=== PATIENT | male | born 1985 | race Caucasian/White ===

== ENCOUNTER 2023-02-03 12:00 | Emergency (ER) | payer OTHER ==
--- OUTSIDE RECORDS SUMMARY | 2023-02-03 12:04 | XMS REPORT | Continuity of Care Document ---
:1985 Author Organization [facility] t Address [address] [place] [address] [place] [address] Care Team Providers Name Role Phone Robin Sunshine DO Primary Care Physician [phone] FOG_A_Provider Attending Clinician Unavailable AJ ZHOU Attending Clinician Unavailable Shoaib Ochoa MD Attending Clinician Robin Sunshine DO Attending Clinician [phone] [id number] Attending Clinician Unavailable FOG_A_Provider Admitting Clinician Unavailable Payers Payer Name Policy Type Policy Number Effective Date Expiration Date Yessi ledezma [employer] [id number] [facility] (O) [id number] 2022 00:00:00 Problems Condition Condition Condition Status Onset Resolution Last Treating Co mments Source Name Details Category Date Date Treatment Clinician Date Sprain of Sprain of Problem Active Aza stalin left ankle Left Ankle 2-08 Or thope 00:00: dic 00 Sports Medicin e Sprain of Sprain of Problem Active Aza stalin left foot Left Foot 2-08 Orth ope 00:00: dic 00 Sports Medicin e Sprain of Sprain of Problem Active Aza stalin calcaneofi Calcaneofi 2-08 Or thope bular bular 00:00: dic ligament Ligament 00 Sports Medicin e Sprain of Sprain of Problem Active Aza stalin ligament Ligament 2-08 Orthop e of of 00:00: dic tarsometat Tarsometat 00 Sp orts arsal arsal Medicin joint Joint e Pain of Pain of Problem Active Helen left ankle Left Ankle 2-08 Or thope joint Joint 00:00: dic 00 Sports Medicin e Celiac Celiac Disease Active 2021-12 Methodi disease disease 12-01 st 00:00: Hospita 00 l Essential Essential Disease Active 2021-12 Met hodi hypertensi hypertensi 12-01 st on on 00:00: Hospita 00 l Anxiety Anxiety Disease Active 2021-12 Methodi 12-01 [facility] 00:00: Hospita 00 l Mild Mild Disease Active 2021-12 Methodi intermitte intermitte 12-01 st nt asthma nt asthma 00:00: Hosp martin without without 00 l complicati complicati on on Seasonal Seasonal Disease Active 2021-12 Metho di allergic allergic 12-01 rhinitis rhinitis 00:00: Hospit a 00 l Allergies, Adverse Reactions, Alerts This patient has no known allergies or adverse reactions. Social History Social Habit Start Date Stop Date Quantity Comments Source Tobacco use and 2022-10-01 2022-10-01 Smokeless tobacco [facility] exposure 00:00:00 00:00:00 non-user Hospital Alcohol intake 2022-10-01 2022-10-01 Ex-drinker [facility] 00:00:00 00:00:00 (finding) Hospital Sex Assigned At [birth year] [facility] 00:00:00 00:00:00 Hospital Smoking Status Start Date Stop Date Source Never Smoker [facility] Medications Ordered Filled Start Stop Current Ordering Indication Dosage Frequency Signature Comments Components Source Medication Medication Date Date Medication? Clinician (SIG) Name Name levalbutero 2021-12- No 1{puff} Q4H Inhale 1-2 Methodi l (XOPENEX 12-[address] HFA) 45 14:22: 00:00 every 4 Hospit a mcg/actuati 50 :00 (four) l on inhaler hours as needed for wheezing. loratadine 2021-12 Yes 10mg QD Take 1 Metho di (Claritin) 12-01 tablet (10 st 10 mg 13:57: mg total) Hospita tablet 21 by mouth l daily. fluticasone 2021-12 Yes 100ug QD 2 sprays M ethodi propionate 12-01 ([address] (FLONASE) 13:57: total) by Hos sergio 50 21 Each Nare l mcg/actuati route on nasal daily. spray levalbutero 2021-12 Yes [id number] 1{puff} Q4H Inhale 1-2 Methodi l (XOPENEX - puffs st HFA) 45 00:00: every 4 Hospita mcg/actuati 00 (four) l on inhaler hours as needed for wheezing or shortness of breath. citalopram 2021-12- No [id number] 10mg QD Take 1 Methodi (CeleXA) 12-01 tablet (10 s t MG tablet 00:00: 04:59 mg total) Ho spita 00 :00 by mouth l daily. lisinopriL 2021-12 No [id number] 20mg QD Take 1 Methodi (PRINIVIL) 12-01 tablet (20 st 20 mg 00:00: 04:59 mg total) Hospit a tablet 00 :00 by mouth l daily. lisinopriL No 20mg QD Take 1 Meth chelle (PRINIVIL) 08-07 tablet (20 st 20 mg 00:00: 00:00 mg total) Hospit a tablet 00 :00 by mouth l daily. citalopram No 10mg QD Take 1 Meth chelle (CeleXA) 08-07 tablet (10 s t MG tablet 00:00: 00:00 mg total) Ho spita 00 :00 by mouth l daily. citalopram citalopram No citalopram Helen 10 mg 10 mg 10 mg Orthope tablet TAKE tablet TAKE tablet dic 1 TABLET 1 TABLET TAKE 1 Sport s (10 MG (10 MG TABLET (10 Medic in TOTAL) BY TOTAL) BY MG TOTAL) e MOUTH MOUTH BY MOUTH DAILY. DAILY. DAILY. levalbutero levalbutero No levalbuter Helen l HFA 45 l HFA 45 ol HFA 45 Or thope mcg/actuati mcg/actuati mcg/actuat dic on aerosol on aerosol ion Spo rts inhaler inhaler aerosol Medici n INHALE ONE INHALE ONE inhaler e (1) TO 2 (1) TO 2 INHALE ONE PUFFS BY PUFFS BY (1) TO 2 MOUTH EVERY MOUTH EVERY PUFFS BY 4 (FOUR) 4 (FOUR) MOUTH HOURS HOURS EVERY 4 NEEDED FOR NEEDED FOR (FOUR) WHEEZING OR WHEEZING OR HOURS SHORTNESS SHORTNESS NEEDED FOR OF BREATH. OF BREATH. WHEEZING OR SHORTNESS OF BREATH. lisinopril lisinopril No lisinopril Helen 20 mg 20 mg 20 mg Orthope tablet TAKE tablet TAKE tablet dic 1 TABLET 1 TABLET TAKE 1 Sport s (20 MG (20 MG TABLET (20 Medic in TOTAL) BY TOTAL) BY MG TOTAL) e MOUTH MOUTH BY MOUTH DAILY. DAILY. DAILY. methocarbam methocarbam No methocarba Helen ol 500 mg ol 500 mg mol 500 mg Orthope tablet TAKE tablet TAKE tablet dic ONE (1) ONE (1) TAKE ONE Sport s TABLET(S) TABLET(S) (1) Medic in BY MOUTH BY MOUTH TABLET(S) e EVERY SIX EVERY SIX BY MOUTH HOURS HOURS EVERY SIX NEEDED FOR NEEDED FOR HOURS MUSCLE MUSCLE NEEDED FOR SPASM AND SPASM AND MUSCLE OR PAIN. OR PAIN. SPASM AND OR PAIN. naproxen naproxen No naproxen Aza stalin 500 mg 500 mg 500 mg Orthope tablet TAKE tablet TAKE tablet dic ONE (1) ONE (1) TAKE ONE Sport s TABLET(S) TABLET(S) (1) Medic in BY MOUTH 2 BY MOUTH 2 TABLET(S) e TIMES PER TIMES PER BY MOUTH 2 DAY ( DAY ( TIMES PER NEEDED FOR NEEDED FOR DAY ( - PAIN) FOR - PAIN) FOR NEEDED FOR 10 DAYS. 10 DAYS. - PAIN) FOR 10 DAYS. pantoprazol pantoprazol No pantoprazo Helen e 40 mg e 40 mg le 40 mg Ortho pe tablet,katie tablet,katie tablet,del dic yed release yed release ayed S ports TAKE ONE TAKE ONE release Medi tashi (1) (1) TAKE ONE e TABLET(S) TABLET(S) (1) BY MOUTH BY MOUTH TABLET(S) ONCE A DAY. ONCE A DAY. BY MOUTH ONCE A DAY. sulfamethox sulfamethox No sulfametho Helen azole 800 azole 800 xazole 800 Orthope mg-trimetho mg-trimetho mg-trimeth dic prim 160 mg prim 160 mg oprim 160 Sports tablet TAKE tablet TAKE mg tablet Medicin ONE (1) ONE (1) TAKE ONE e TABLET(S) TABLET(S) (1) BY MOUTH BY MOUTH TABLET(S) TWICE A DAY TWICE A DAY BY MOUTH FOR 10 FOR 10 TWICE A DAYS. DAYS. DAY FOR 10 DAYS. triamcinolo triamcinolo No triamcinol Helen ne ne one Orthope acetonide acetonide acetonide dic 0.1 % 0.1 % 0.1 % Sports topical topical topical Medici n cream APPLY cream APPLY cream e TO AFFECTED TO AFFECTED APPLY TO AREA THREE AREA THREE AFFECTED TIMES DAILY TIMES DAILY AREA THREE NEEDED NEEDED TIMES FOR RASH. FOR RASH. DAILY NEEDED FOR RASH. valacyclovi valacyclovi No valacyclov Helen r 1 gram r 1 gram ir 1 gram Or thope tablet TAKE tablet TAKE tablet dic ONE (1) ONE (1) TAKE ONE Sport s TABLET(S) TABLET(S) (1) Medic in BY MOUTH BY MOUTH TABLET(S) e THREE TIMES THREE TIMES BY MOUTH A DAY FOR A DAY FOR THREE SEVEN DAYS. SEVEN DAYS. TIMES A DAY FOR SEVEN DAYS. Vital Signs Vital Name Observation Time Observation Value Comments Source Systolic blood 2022-10-01 18:55:00 150 mm[Hg] [facility] pressure Diastolic blood 2022-10-01 18:55:00 92 mm[Hg] [facility] pressure Heart rate 2022-10-01 18:55:00 75 /min [facility] Body temperature 2022-10-01 18:55:00 36.56 Jen [facility] Body height 2022-10-01 18:55:00 193 cm [facility] Body weight 2022-10-01 18:55:00 123.832 kg [facility] BMI 2022-10-01 18:55:00 33.23 kg/m2 [facility] Oxygen saturation in 2022-10-01 18:55:00 99 /min [facility] Arterial blood by Pulse oximetry Procedures Procedure Date / Time Performing Clinician Source Performed XR, ankle, 3 or more 2023-01-08 00:00:00 [facility] Medicine CBC HEMOGRAM 2022-10-03 13:58:00 Robin Sunshine [facility] Izabela COMPREHENSIVE METABOLIC 2022-10-03 13:58:00 [facility] PANEL Izabela LIPID PANEL 2022-10-03 13:58:00 [facility] Izabela TSH WITH REFLEX TO FREE 2022-10-03 13:58:00 [facility] T4 Izabela Plan of Care Planned Activity Planned Date Details Comments Source Future Scheduled 2023-01-02 COVID-[address] Test 10:35:40 (#1) [code = Hospital COVID-19 VACCINE (#1)] Future Scheduled 2023-01-02 Pneumococcal [facility] Test 10:35:40 Vaccine: Pediatric[facility] Hospital (0 to 5 Years) and At-Risk Patients (6 to 64 Years) (1 - PCV) [code = Pneumococcal Vaccine: Pediatrics (0 to 5 Years) and At-Risk Patients (6 to 64 Years) (1 - PCV)] Future Scheduled 2023-01-02 Hepatitis C [facility] Test 10:35:40 screening Hospital (procedure) [code = 881974799] Future Scheduled 2023-01-02 INFLUENZA VACCINE Postponed from Meth odist Test 10:35:40 [code = INFLUENZA 07/01/2022 Hospital VACCINE] (Patient Refused) Instructions [facility] Encounters Start End Encounter Admission Attending Care Care Encounter Source Date/Time Date/Time Type Type Clinicians Facility Department ID 2023-01-13 2023-01-13 Outpatient FOG_A_Provi AOSM AO [id number] Helen 00:00:00 00:00:00 tree [id number] Orthop e dic Sports Medicin e 2023-01-08 2023-01-08 Outpatient FOG_A_Provi AOSM AO [id number] Helen 00:00:00 00:00:00 tree [id number] Orthop e dic Sports Medicin e 2023-01-08 2023-01-08 Mahendra Parsons [facility] [place] - Ortho [id number] Helen 00:00:00 00:00:00 Gina Shin MD: [id number] FOG_Ofc dic [facility], [place] [id number] , Ph. [phone] 2023-01-03 2023-01-03 Outpatient FOG_A_Provi AOSM AO [id number] Helen 00:00:00 00:00:00 tree [id number] Orthop e dic Sports Medicin e 2023-01-03 2023-01-03 Outpatient FOG_A_Provi AOSM AOSM [id number] Helen 00:00:00 00:00:00 tree [id number] Orthop e dic Sports Medicin e 2022-10-18 2022-10-18 Outpatient MARIELOS ZHOU [id number] Marielos 08:45:00 08:45:00 AJ Seybol rj 2022-10-01 2022-10-01 Office Melisa Ochoachar 1.2.840.1 [id number] Methodi 14:00:00 14:34:21 Visit Robin Sunshine 02321.1.[address] 3.430.2.7 Hospit a .3.268315 l .8 2022-10-01 2022-10-01 Travel 1.2.840.1 [id number] Methodi 00:00:00 00:00:[address] 3.430.2.7 0.2.7.3.698 Ho spita .3.232167 084.8 l .8 2022-10-01 2022-10-01 [facility]patient [facility] [id number] [place] 00:00:00 00:00:[address] 2022-09-04 2022-09-04 Travel 1.2.840.1 [id number] [id number] Methodi 00:00:00 00:00:[address] 3.430.2.7 0.2.7.3.698 Ho spita .3.938334 084.8 l .8 2022-09-02 2022-09-02 Travel 1.2.840.1 1.2.868.713 [id number] Methodi 00:00:00 00:00:[address] 3.430.2.7 0.2.7.3.698 jhonyta .3.751069 084.8 l .8 2022-07-25 2022-07-25 Outpatient MARIELOS ZHOU [id number] [place] 00:00:00 00:00:00 AJ Seybol d 2022-07-22 2022-07-22 Outpatient LAB45 MARIELOS COVARRUBIAS [id number] 53 [place]iel[place] 09:25:00 09:25:00 Seybol d 2022-07-17 2022-07-17 Outpatient MARIELOS ZHOU [id number] Mariel[place] 08:30:00 08:30:00 AJ Seybol d Results Test Description Test Time Test Comments Results Result Comments Source Comprehensive metabolic panel 2022-10-04 10:10:00 Test Item Value Reference Range Interpretation Comme nts Glucose (test code = 103 mg/dL 70-99 H 5-7) BUN (test code = 3094-0) 15 mg/dL 6-20 Creatinine (test code = 0.98 mg/dL 0.76-1.27 0-0) eGFR (test code = 8257) 101 mL/min/1.73 >=59 BUN/creatinine ratio (test 15 - code = 3097-3) Sodium (test code = 141 mmol/L 523-448 7734-2) Potassium (test code = 4.2 mmol/L 3.5-5.2 2823-3) Chloride (test code = 103 mmol/L 96-106 5-0) CO2 (test code = 2028-08) 26 mmol/L 20-29 Calcium (test code = 9.4 mg/dL 8.7-10.2 78213-6) Protein (test code = 7.0 g/dL 6.0-8.5 2885-2) Albumin, S (test code = 4.6 g/dL 4.0-5.0 1751-7) Globulin, total (test code 2.4 g/dL 1.5-4.5 = 43369-3) Albumin/globulin ratio 1.9 1.2-2.2 (test code = 1759-0) Total bilirubin (test code 0.6 mg/dL 0.0-1.2 = 1974-) Alkaline phosphatase (test 58 See_Comment [Automated message] code = 6768-6) The system [employer] generated this result transmitted ref erence range: 44 - 121 IU/L. The reference r rayo was not used to int erpret this result as normal/abnormal . AST (test code = 1920-8) 32 See_Comment [A utomated message] The system [employer] generated this result transmitted ref erence range: 0 - 40 I U/L. The reference range was not used to interpr et this result as normal/abnormal . ALT (test code = 1742-6) 30 See_Comment [A utomated message] The system [employer] generated this result transmitted ref erence range: 0 - 44 I U/L. The reference range was not used to interpr et this result as normal/abnormal . JOSIAH (test code = JOSIAH) Performed at: [facility] [id number] Director: Ozzie Stevens MD, Phone: [phone] Lab Interpretation (test Abnormal code = 58580-2) [facility] [id number] 10:10:00 Test Item Value Reference Range Interpretation Comments Cholesterol (test code = 133 mg/dL 900-023 0043-3) Triglycerides (test code 90 mg/dL 0-149 = 2571-8) HDL cholesterol (test 43 mg/dL >=39 code = 2085-9) VLDL cholesterol valeriano 17 mg/dL 5-40 (test code = 84642-4) LDL Chol Calc ([facility]) 73 mg/dL 0-99 (test code = 76204-2) Non-HDL cholesterol 90 mg/dL 0-129 (test code = 66716-8) JOSIAH (test code = JOSIAH) Performed at: [facility] [id number] Director: Ozzie Stevens MD, Phone: [phone] [facility] [id number] 10:10:00 Test Item Value Reference Range Interpretation Comments WBC (test code = 5.5 See_Comment [Automated 4990-2) message] The sy stem which generated this result transmitted reference range : 3.4 - 10.8 x10E3/uL. The reference range was not used to interpret this result as normal/abnormal . RBC (test code = 5.50 See_Comment [Automated 789-8) message] The sy stem which generated this result transmitted reference range : 4.14 - 5.80 x10E6/uL. The reference range was not used to interpret this result as normal/abnormal . HGB (test code = 15.8 g/dL 13.0-17.7 718-7) HCT (test code = 47.6 % 37.5-51.0 4544-3) MCV (test code = 87 fL 79-97 787-2) MCH (test code = 28.7 pg 26.6-33.0 785-6) MCHC (test code = 33.2 g/dL 31.5-35.7 786-4) RDW (test code = 12.7 % 11.6-15.4 788-0) Platelet count 200 See_Comment [Automated (test code = message] The sy stem 777-3) which generated this result transmitted reference range : 150 - 450 x10E3 /uL. The reference r rayo was not used to interpret this result as normal/abnormal . JOSIAH (test code = Performed at: ) [facility] [address] [id number] Director: Ozzie Stevens MD, Phone: [phone] [facility] reflex to [id number] 10:10:00 Test Item Value Reference Range Interpretation Comments TSH (test code 1.760 See_Comment [Automated m essage] = 09952-2) The system whic h generated this result transmit rosas reference range : 0.450 - 4.500 uIU/mL. The reference range was not used to interpret this result as normal/abnormal . JSOIAH (test code Performed at: - = JOSIAH) [facility] [address] [id number] Director: Ozzie Stevens MD, Phone: [phone] [facility]
--- NOTE | 2023-02-03 12:21 | EDPHYS ---
Physician Documentation [facility] Name: Ortiz Ramachandran Age: 37 yrs Sex: Male : 1985 Arrival Date: 02/03/2023 Time: 12:03 Bed DX3 Private MD: ED Physician Brigido Weber HPI: 02/03 12:21 This 37 yrs old Male presents to ER via Unassigned with complaints of Back Pain. rt 12:21 The patient presents with pain that is acute. Patient with history of disc disease rt presents to the ED with a worsening of his chronic back pain starting about 3 days ago after lifting a box. He states that it radiates down the left leg. He denies any numbness, tingling. Denies bowel, bladder incontinence. Patient denies fever. Denies other acute complaints at this time. Symptoms are mild in severity, no other aggravating relieving factors. - Family history:: not pertinent. ROS: 12:21 Constitutional: Negative for fever, chills, and weight loss, Respiratory: Negative for rt shortness of breath, cough, wheezing, and pleuritic chest pain, Abdomen/GI: Negative for abdominal pain, nausea, vomiting, diarrhea, and constipation, Skin: Negative for injury, rash, and discoloration, Neuro: Negative for headache, weakness, numbness, tingling, and seizure, Psych: Negative for depression, anxiety, suicide ideation, homicidal ideation, and hallucinations. 12:21 Back: Positive for pain at rest, pain with movement. Exam: 12:21 Back: Left-sided paraspinal tenderness along the lumbar region, no midline tenderness, rt no step-off. 12:28 Constitutional: This is a well developed, well nourished patient who is awake, alert, rt and in no acute distress. Head/Face: Normocephalic, atraumatic. Chest/axilla: Normal chest wall appearance and motion. Nontender with no deformity. No lesions are appreciated. Cardiovascular: Regular rate and rhythm with a normal S1 and S2. No gallops, murmurs, or rubs. Normal PMI, no JVD. No pulse deficits. Respiratory: Lungs have equal breath sounds bilaterally, clear to auscultation and percussion. No rales, rhonchi or wheezes noted. No increased work of breathing, no retractions or nasal flaring. Abdomen/GI: Soft, non-tender, with normal bowel sounds. No distension or tympany. No guarding or rebound. No evidence of tenderness throughout. Skin: Warm, dry with normal turgor. Normal color with no rashes, no lesions, and no evidence of cellulitis. MS/ Extremity: Pulses equal, no cyanosis. Neurovascular intact. Full, normal range of motion. Neuro: Awake and alert, GCS 15, oriented to person, place, time, and situation. Cranial nerves II-XII grossly intact. Motor strength 5/5 in all extremities. Sensory grossly intact. Cerebellar exam normal. Normal gait. Psych: Awake, alert, with orientation to person, place and time. Behavior, mood, and affect are within normal limits. MDM: 12:11 Patient medically screened. rt 12:28 Differential diagnosis: Musculoskeletal back pain, cauda equina syndrome, spinal rt epidural abscess. Data reviewed: vital signs, nurses notes. Test considered but Not performed: Labs: Symptoms consistent musculoskeletal back pain, urinalysis not indicated. MRI: No red flag symptoms to suggest cauda equina syndrome, spinal epidural abscess, MRI not indicated. Care significantly affected by the following chronic conditions: Chronic back pain. Counseling: I had a detailed discussion with the patient and/or guardian regarding: the historical points, exam findings, and any diagnostic results supporting the discharge/admit diagnosis, the need for outpatient follow up. Administered Medications: 12:52 Not Given (pt left before administrating ): Ketorolac 30 mg IM once iw Disposition Summary: 02/03/23 12:20 Discharge Ordered Location: Home rt Problem: an acute exacerbation rt Symptoms: are unchanged rt Condition: Stable rt Diagnosis - Low back pain rt Followup: rt - With: Private Physician - When: 2 - 3 days - Reason: Discharge Instructions: - Discharge Summary Sheet rt - Acute Back Pain, Adult rt Forms: - Medication Reconciliation Form rt - Thank You Letter rt - Antibiotic Education rt - Prescription Opioid Use rt Prescriptions: - Cyclobenzaprine 10 mg Oral Tablet - take 1 tablet by ORAL route every 8 hours As needed; 18 tablet; Refills: 0, rt Product Selection Permitted - Prednisone 20 mg Oral Tablet - take 2 tablets by ORAL route once daily for 5 days; 10 tablet; Refills: 0, rt Product Selection Permitted Signatures: Brigido Weber MD MD rt Syed, Britt RN iw
[2023-02-03] MEDS ORDERED: KETOROLAC 30 MG/ML INJ ONE (12:43)
--- NOTE | 2023-02-03 12:52 | ER ---
Nurse's Notes [facility] Name: Ortiz Ramachandran Age: 37 yrs Sex: Male : 1985 Arrival Date: 02/03/2023 Time: 12:03 Bed DX3 Private MD: Diagnosis: Low back pain Presentation: 02/03 12:30 Chief complaint: Patient states: chronic back pain X 3 days after lifting something iw heavy. Coronavirus screen: At this time, the client does not indicate any symptoms associated with coronavirus-19. Ebola Screen: Patient negative for fever greater than or equal to 101.5 degrees Fahrenheit, and additional compatible Ebola Virus Disease symptoms Patient denies exposure to infectious person. Patient denies travel to an Ebola-affected area in the 21 days before illness onset. No symptoms or risks identified at this time. Risk Assessment: Do you want to hurt yourself or someone else? Patient reports no desire to harm self or others. Onset of symptoms was January 31, 2023. 12:30 Method Of Arrival: Ambulatory iw 12:30 Acuity: WILMER 4 iw - Family history:: not pertinent. Assessment: 12:40 General: Appears in no apparent distress. Behavior is calm, cooperative. Pain:. Neuro: iw Level of Consciousness is awake, alert, obeys commands, Oriented to person, place, time, situation. ED Course: 12:03 Patient arrived in ED. mr 12:11 Brigido Weber MD is Attending Physician. rt 12:37 Britt Lynch RN is Primary Nurse. iw 12:50 Triage completed. iw 12:50 Arm band placed on. iw 12:51 No provider procedures requiring assistance completed. Patient did not have IV access iw during this emergency room visit. Administered Medications: 12:52 Not Given (pt left before administrating ): Ketorolac 30 mg IM once iw Outcome: 12:20 Discharge ordered by MD. rt 12:51 Discharged to home ambulatory, with family. iw 12:51 Condition: good 12:51 Discharge instructions given to patient, family, Instructed on discharge instructions, follow up and referral plans. 12:52 Patient left the ED. iw Signatures: Telma Lucero mr Britt Lynch RN RN iw Brigido Weber MD MD rt
== END 2023-02-03 12:52 | disposition home or self-care (01) ==
LOC: ER 12:00
DX: M54.50 Low back pain, unspecified (principal)
CPT/HCPCS: 99281